=== PATIENT | male | born 1950 | race Hispanic/Latino ===

== ENCOUNTER → 2017-11-15 | Outpatient (CLI) | payer MEDICARE | LOC: RAH 14:56 | PROVIDERS: ATTEND Internal Medicine Cardiovascular Disease | DX: M19.072 Primary osteoarthritis, left ankle and foot (principal); M25.542 Pain in joints of left hand | CPT/HCPCS: 73130; 73610 ==

== ENCOUNTER 2023-09-13 19:28 | Emergency (ER) | payer OTHER, MEDICARE ==
[~2023-09-13] VITALS: Ht 175.3 cm; Wt 68.9 kg
[2023-09-13 20:00] VITALS: BP 152/117; PULSE 119; RESP 18
[2023-09-13 20:35] LABS: BASOPHILS # (AUTO) 0.02 K/uL (0.00-0.20); BASOPHILS % (AUTO) 0.1 % (0.0-5.0); HEMATOCRIT 43.6 % (42-54); IMMATURE GRANULOCYTE ABSOLUTE 0.08 K/uL (0-1); LYMPHOCYTES # (AUTO) 0.8 K/uL (1.0-4.8); LYMPHOCYTES % (AUTO) 5.4 % (21.0-51.0); MEAN CORPUSCULAR HEMOGLOBIN 33.3 pg (27.0-33.0); MEAN CORPUSCULAR VOLUME 92.6 fL (79-99); MONOCYTES # (AUTO) 1.1 K/uL (0.1-1.0); MONOCYTES % (AUTO) 7.8 % (3.0-13.0); NEUTROPHILS % (AUTO) 86.1 % (40.0-77.0); PLATELET COUNT (AUTO) 222 K/uL (130-400); RED BLOOD CELL COUNT(AUTO) 4.71 MIL/uL (4.50-6.20); RED CELL DISTRIBUTION WIDTH 11.8 % (11.0-15.5); WHITE BLOOD COUNT (AUTO) 13.9 K/uL (4.8-10.8)
[2023-09-13 20:42] LABS: CREATININE 2.1 mg/dL (0.5-1.5); POTASSIUM 3.3 mmol/L (3.5-5.1)
[2023-09-13 20:43] LABS: APPEARANCE,URINE CLEAR (CLEAR); BILIRUBIN,URINE NEGATIVE (NEGATIVE); COLOR,URINE YELLOW (YELLOW); GLUCOSE, URINE (UA) 50 mg/dL (NEGATIVE); KETONES,URINE NEGATIVE (NEGATIVE); LEUKOCYTE ESTERASE ,URINE NEGATIVE Leu/uL (NEGATIVE); NITRATE,URINE NEGATIVE (NEGATIVE); OCCULT BLOOD,URINE MODERATE (NEGATIVE); PROTEIN,URINE 600 mg/dL (NEGATIVE); UROBILINOGEN,URINE 0.2 mg/dL (0.2-1.0)
[2023-09-13 20:48] LABS: ADD UA MICROSCOPIC YES
[2023-09-13 20:50] LABS: BACTERIA,URINE RARE /HPF (None Seen); MUCUS,URINE FEW LPF (None Seen)
[2023-09-13] MEDS ORDERED: CHLORPROMAZINE HCL 25 MG/ML 1ML AMP ONE (20:52)
[2023-09-13 20:53] LABS: ALBUMIN 4.1 g/dL (3.5-5.0); BILIRUBIN,TOTAL 0.8 mg/dL (0.2-1.0); TOTAL PROTEIN, SERUM 8.9 g/dL (6.0-8.3)
[2023-09-13] MEDS ORDERED: CHLORPROMAZINE HCL 25 MG/ML 1ML AMP IM SCH (21:00)
[2023-09-13] MEDS ORDERED: DOCU-116 PO (22:39)
== END 2023-09-13 23:03 | disposition home or self-care (01) ==
LOC: EDH 19:28
DX: R06.6 Hiccough (principal); R10.9 Unspecified abdominal pain; I12.9 Hypertensive chronic kidney disease with stage 1 through stage 4 chronic kidney disease, or unspecified chronic kidney disease; N18.9 Chronic kidney disease, unspecified; K59.00 Constipation, unspecified
CPT/HCPCS: 99283; 80053; 83690; 85025; 81001; 36415; 96372; J3230

== ENCOUNTER 2024-12-23 10:59 | Emergency (ER) | payer MEDICARE, OTHER ==
[~2024-12-23] VITALS: Ht 177.8 cm; Wt 81.6 kg
[~2024-12-23 10:59] MED LIST: DOCU-116 PO
[2024-12-23 11:01] VITALS: BP 144/90; PULSE 89; RESP 16; TEMP 97.8; O2SAT 98
[2024-12-23 11:36] LABS: RAPID GROUP A STREP negative (NEGATIVE)
[2024-12-23 11:39] LABS: SARS-CoV-2, RNA, NAAT NEGATIVE SARS CoV-2 (NEGATIVE)
--- NOTE | 2024-12-23 11:45 | ERN ---
General Chief Complaint: Flu Symptoms Stated Complaint: FLU LIKE SYMPTOMS Time Seen by MD: 11:06 Time Seen by Midlevel: 11:06 Source: patient History of Present Illness Initial Comments Patient is a 74-year-old male presenting to the emergency department for evaluation of generalized body weakness. Patient reports weakness to bilateral lower extremities that has been chronic and present for over one year. He does report his girlfriend being sick with flu-like symptoms and is also at the hospital for further evaluation. The patient is specifically denies any chest pain, shortness of breath, fever, chills, or any other symptoms at this time. Allergies: Coded Allergies: No Known Allergies (Unverified Allergy, Unknown, 09/13/23) Home Meds Active Scripts Docusate Sodium (Colace) 100 Mg Capsule, 100 MG PO BID PRN for CONSTIPATION, #30 CAP Prov:PRASHANT ADAIR MD 09/13/23 Past Medical History Past Medical History: Hypertension Past Surgical History: Other Surgical History Other: TIB\FIB SX Social History Social History: Negative ROS Dictation CONSTITUTIONAL: Negative except for HPI HEAD/FACE: Negative except for HPI EENT: Negative except for HPI RESPIRATORY: Negative except for HPI GASTROINTESTINAL/ABDOMINAL: Negative except for HPI GENITOURINARY: Negative except for HPI MUSCULOSKELETAL: Negative except for HPI INTEGUMENTARY: Negative except for HPI NEUROLOGICAL/PSYCH: Negative except for HPI HEMATOLOGIC/LYMPHATIC: Negative except for HPI All Systems Negative, Except as noted above. 13 point review of systems assessed and all negative except for above. Physical Exam Physical Exam Dictation Vital Signs reviewed General Appearance: Alert, oriented x 3, no acute distress, well developed, nourished. Head and Face: non-traumatic. Eyes: PERRL, pink conjunctivas, eyelid no trauma, anterior chamber with arcus senilis. Ears: Pinnas intact and no signs of trauma or erythema ear canals clear and no discharge TM no erythema Nose: No discharge, no bleeding. Oropharynx: Mouth normal, tongue pink, pharynx clear,no erythema, tonsils no exudates, no abscesses noted, mucous membrane moist Neck: Supple, non-tender, no thyromegaly, no masses, no JVD, no bruits Breast:Deferred Chest:No tenderness, no crepitus, no paradoxical movement, no retractions Lungs:Clear, well-ventilated, symmetric, no rales, no wheezing, no rhonchi, no stridor, good breath sounds bilaterally Heart: Regular rate, regular rhythm, no murmur, no gallops Vascular: no peripheral edema, Abdomen: Soft, positive bowel sounds, nondistended, no guarding, nontender, no rebound, no masses no hepatomegaly, no splenomegaly, no Sarmiento's sign, no hernias. Rectal: Deferred Genital: Deferred Neurological: Normal speech, motor function intact, sensory function intact Musculoskeletal: Neck nontender, full range of motion, back nontender, full range of motion, Extremities: nontender, full range of motion Skin: Color pink, dry, no turgor, no rash, no lacerations, no abrasions, no contusions. Lymphatic: Deferred Results Laboratory and Microbiology Lab and Micro Result Laboratory Tests Test 12/23/24 11:07 Influenza Type A Antigen Positive For Type A Influenza Type B Antigen Negative For Type B SARS-CoV-2, RNA, NAAT NEGATIVE SARS CoV-2 Group A Streptococcus Rapid negative (NEGATIVE) Labs Reviewed?: Yes MDM MDM: 74-year-old male presenting to the emergency department with a flu-like symptoms. Patient was girlfriend is sick with similar symptoms. On arrival initial vital signs are stable. Patient was afebrile and nontoxic appearing. Lung examination is unremarkable there was no wheezing, rhonchi, or rales. Patient was not in any acute respiratory distress. He was some mild erythema to the posterior oropharynx with the remainder of his physical examination is unremarkable. Patient was swabbed and is positive for influenza A. Chart review reveals chronic kidney disease with the last GFR recorded in the 30s. We will prescribe Tamiflu 30 mg b.i.d. for five days. The patient will need to follow up with his primary care doctor or return to the ER if he develops any new or worsening symptoms Differential diagnosis: Viral illness, upper respiratory infection, strep There are no social concerns with this patient. Prescription drug management Prescriptions will include: Tamiflu Medical management and examination interpretation discussions were had by me with other qualified healthcare professionals as indicated for the patient's care. ED Course Orders Procedure Category Date Status Time Covid Rna Naat LAB 12/23/24 Complete 11:18 Influenza Type A & B, LAB 12/23/24 Complete Rapid 11:18 Rapid (Group A Strep) LAB 12/23/24 Complete 11:18 Vital Signs Date Time Temp Pulse Resp B/P (MAP) Pulse Ox O2 Delivery O2 Flow Rate FiO2 12/23/24 11:01 97.9 89 16 144/90 99 Room Air 0 12/23/24 11:01 97.9 98 16 144/90 98 Room Air* 0 21 DX & DISP Disposition: Discharge Departure Impression: Primary Impression: Influenza A Condition: Stable Scripts Oseltamivir Phosphate (Tamiflu) 30 Mg Capsule 1 CAP PO BID for 5 Days, #10 CAP 0 Refills Prov: LORRAINE SPRAGUE 12/23/24 Additional Instructions: You have tested positive for influenza A. I have given you a prescription for Tamiflu. If you develop any new or worsening symptoms please report to the ER for further evaluation. Follow up with your PCP in 2-3 days Referrals: TEMI ROJO MD (PCP) I have reviewed the case, and I agree with, Diagnosis and Plan I performed the substantive portion of the visit. I have reviewed and personally made and approve the management plan that is documented in the note by myself or the EARLINE. I acknowledge for responsibility for the patient's management plan. LORRAINE SPRAGUE Dec 23, 2024 11:45
[2024-12-23 11:47] LABS: INFLUENZA TYPE B Negative For Type B (NEGATIVE)
[2024-12-23 11:59] LABS: INFLUENZA TYPE A Positive For Type A (NEGATIVE)
[2024-12-23] MEDS ORDERED: OSEL30CA PO (12:06)
== END 2024-12-23 12:38 | disposition home or self-care (01) ==
LOC: EDH 10:59
DX: J10.1 Influenza due to other identified influenza virus with other respiratory manifestations (principal); I10 Essential (primary) hypertension; Z20.822 Contact with and (suspected) exposure to COVID-19
CPT/HCPCS: 87635; 87804; 87880; 99283

== ENCOUNTER 2025-03-29 12:49 | Emergency (ER) | payer OTHER ==
[~2025-03-29] VITALS: Ht 177.8 cm; Wt 81.6 kg
[~2025-03-29 12:49] MED LIST changes: +OSEL30CA PO
--- NOTE | 2025-03-29 13:00 | ERN ---
ED Note History of Present Illness Stated Complaint: FALL Chief Complaint: Mechanical Fall Time Seen by MD: 12:51 Dictation: Patient is a 74-year-old male coming to the hospital via EMS after a status post same level fall while he was walking out a convenience store. He said he stripped on his curve, fell and hit his face with a laceration to the chin and forehead. No LOC no nausea vomiting. No neck pain no blood thinners no trauma alert criteria. He is having no midline spine pain. States his last tetanus shot is unknown. Allergies: Coded Allergies: No Known Allergies (Unverified Allergy, Unknown, 09/13/23) Home Meds Active Scripts Oseltamivir Phosphate (Tamiflu) 30 Mg Capsule, 1 CAP PO BID for 5 Days, #10 CAP 0 Refills Prov:LORRAINE SPRAGUE 12/23/24 Docusate Sodium (Colace) 100 Mg Capsule, 100 MG PO BID PRN for CONSTIPATION, #30 CAP Prov:PRASHANT ADAIR MD 09/13/23 Past Medical History Past Medical History: Hypertension Surgical History: Other Surgical History Other: TIB\FIB SX Social History: Negative RN Note Reviewed/Agreed w/PFSH: Yes Review of System Dictation CONSTITUTIONAL: Negative except for HPI HEAD/FACE: Negative except for HPI facial lack x2 EENT: Negative except for HPI RESPIRATORY: Negative except for HPI GASTROINTESTINAL/ABDOMINAL: Negative except for HPI GENITOURINARY: Negative except for HPI MUSCULOSKELETAL: Negative except for HPI INTEGUMENTARY: Negative except for HPI NEUROLOGICAL/PSYCH: Negative except for HPI HEMATOLOGIC/LYMPHATIC: Negative except for HPI All Systems Negative, Except as noted above. 13 point review of systems assessed and all negative except for above. Initial Vital Sign VS Vital Signs Date Time Temp Pulse Resp B/P (MAP) Pulse Ox O2 Delivery O2 Flow Rate FiO2 03/29/25 13:00 97.7 98 18 195/120 98 Room Air 0 03/29/25 13:30 21 Physical Exam Dictation Vital Signs reviewed General Appearance: Alert, oriented x 3, no acute distress, well developed, nourished. Head and Face: 1 CM LACERATION TO UPPER LIP RIGHT. 3 CM LACERATION TO CHIN. Eyes: PERRL, pink conjunctivas, eyelid no trauma, anterior chamber with arcus senilis. Ears: Pinnas intact and no signs of trauma or erythema ear canals clear and no discharge TM no erythema Nose: No discharge, no bleeding. Oropharynx: Mouth normal, tongue pink, TEETH ARE INTACT TMJ WITH FULL RANGE OF MOTION NO CREPITATION pharynx clear,no erythema, tonsils no exudates, no abscesses noted, mucous membrane moist Neck: Supple, non-tender, no thyromegaly, no masses, no JVD, no bruits Breast:Deferred Chest:No tenderness, no crepitus, no paradoxical movement, no retractions Lungs:Clear, well-ventilated, symmetric, no rales, no wheezing, no rhonchi, no stridor, good breath sounds bilaterally Heart: Regular rate, regular rhythm, no murmur, no gallops Vascular: no peripheral edema, Abdomen: Soft, positive bowel sounds, nondistended, no guarding, nontender, no rebound, no masses no hepatomegaly, no splenomegaly, no Sarmiento's sign, no hernias. Rectal: Deferred Genital: Deferred Neurological: Normal speech, motor function intact, sensory function intact Musculoskeletal: Neck nontender, full range of motion, back nontender, full range of motion, Extremities: nontender, full range of motion Skin: Color pink, dry, no turgor, no rash, no lacerations, no abrasions, no contusions. Lymphatic: Deferred Results (Laboratory/Radiology) Labs Reviewed?: Yes ED Course ED Course Orders Procedure Category Date Status Time Acetaminophen 500mg PHA 03/29/25 Complete Tab (Tylenol 500mg T 13:00 Tetanus,Diphtheria PHA 03/29/25 Complete Tox [Adult] (Diphther 13:00 Neomy PHA 03/29/25 Complete Sulf/Bacitra/Polymyxin 13:00 Clonidine Hcl 0.2 Mg PHA 03/29/25 Complete Tablet (Catapres 0. 14:00 Current Medications Medications (Trade) Dose Ordered Sig/Flako Route PRN Reason Start Time Stop Time Status Last Admin Dose Admin Acetaminophen (TYLenol 500MG TAB) 1,000 mg ONCE ONCE PO 03/29/25 13:00 03/29/25 13:01 DC 03/29/25 13:21 Clonidine HCl (CATApres 0.2 MG TAB) 0.2 mg ONCE ONCE PO 03/29/25 14:00 03/29/25 14:01 DC 03/29/25 13:51 Neomycin/ Polymyxin/ Bacitracin (Triple Antibiotic Ointment) 1 appl ONCE ONCE TP 03/29/25 13:00 03/29/25 13:01 DC 03/29/25 13:21 Tetanus/ Diphtheria Toxoids Adsorbed (DiphthERIA-teTANUS TOXOID [ADULT]/ DECAVAC) 0.5 ml ONCE ONCE IM 03/29/25 13:00 03/29/25 13:01 DC 03/29/25 13:55 Vital Signs Date Time Temp Pulse Resp B/P (MAP) Pulse Ox O2 Delivery O2 Flow Rate FiO2 03/29/25 13:51 78 212/122 03/29/25 13:30 78 18 212/122 99 Room Air* 0 21 03/29/25 13:00 97.7 98 18 195/120 98 Room Air 0 1455/PATIENT NEUROLOGICALLY INTACT SPEECH IS CLEAR. CURRENT BLOOD PRESSURE 157/96 AFTER TREATMENT WITH CLONIDINE. PATIENT WILL BE DISCHARGED HOME WITH CLONIDINE KEFLEX AND TOLD TO FOLLOW UP WITH THE DOCTOR AND GIVEN A LIST PROVIDED HIM IN THE NEXT 1-2 DAYS. IN ADDITION WE WILL BE GIVEN HIM CLOSED HEAD INJURY INSTRUCTIONS NO FAMILY AT THE BEDSIDE Medical Decision Making MDM MDM: DIFFERENTIAL DIAGNOSIS: FACIAL CONTUSION/LACERATIONS/LIP LACK/TRIP F ALL/HYPERTENSION RATIONALE: TESTS CONSIDERED AND ORDERED SECONDARY TO SHARED DECISION MAKING INCLUDE: NONE PREVIOUS OUTSIDE RECORDS REVIEWED: OLD ER VISITS. RISK OF COMPLICATION AND/OR MORBIDITY OR MORTALITY OF PATIENT MANAGEMENT: NONE MEDICATIONS-PER MEDICATION RECONCILIATION NEED FOR HOSPITALIZATION: PATIENT DOES NOT MEET CRITERIA FOR HOSPITALIZATION. NO THERE ARE NO SOCIAL CONCERNS WITH THIS PATIENT. PRESCRIPTION DRUG MANAGEMENT CLONIDINE/KEFLEX/IBUPROFEN PRESCRIPTIONS WILL INCLUDE SYMPTOMATIC CARE PATIENT'S PRIOR EXTERNAL MEDICAL RECORDS FROM OTHER ER VISITS WERE REVIEWED BY ME INDICATED. PRIOR TESTING AND RESULTS FROM PREVIOUS VISITS WERE REVIEWED. PRIOR TESTS WERE TAKEN INTO ACCOUNT WITH MEDICAL DECISION MAKING AND RESOURCE UTILIZATION, INDEPENDENT HISTORIAN/HISTORIANS WERE USED TO OBTAIN COMPLETE MEDICAL HISTORY. I INDEPENDENTLY INTERPRETED THE TEST THAT WERE PERFORMED, RESULTS WERE REVIEWED BY ME AND CONSIDERED FINDINGS ON RADIOLOGY IF ORDERED. MEDICAL MANAGEMENT AND EXAMINATION INTERPRETATION DISCUSSIONS WERE HAD BY ME WITH OTHER QUALIFIED HEALTHCARE PROFESSIONALS INDICATED FOR THE PATIENT'S CARE. Procedure Procedure Dictation: 1400/PROCEDURE EXPLAINED TO PATIENT HE AGREED TO PROCEED 1 CM LACERATION TO RIGHT UPPER LIP DOES NOT INCLUDE VERMILION BORDER. CLEANED WITH NORMAL SALINE USE 1 ML LIDOCAINE 1% PLAIN FOR LOCAL ANESTHESIA CLOSED WITH ONE 4-0 CHROMIC SIMPLE INTERRUPTED SINGLE-LAYER CLOSURE 2ND LACERATION TO CHIN IS 3 CM CLEANED WITH WOUND CLEANSER USED 2 ML 1% LIDOCAINE PLAIN FOR LOCAL ANESTHESIA NO DEBRIDEMENT CLOSED WITH THREE 4-0 NYLON SIMPLE INTERRUPTED SUTURES SINGLE-LAYER CLOSURE PATIENT TOLERATED WELL DX & DISP Disposition: Discharge Departure Impression: Primary Impression: Chin laceration Additional Impressions: Lip laceration, Facial contusion, Hypertension, Other slipping, tripping and stumbling without falling, initial encounter Condition: Stable Scripts Clonidine HCl (Clonidine HCl) 0.1 Mg Tablet 0.1 MG PO BID, #60 TAB Prov: ALICIA BOWDEN NP 03/29/25 Cephalexin (Cephalexin) 500 Mg Tablet 1 TAB PO QID for 10 Days, #40 TAB 0 Refills Prov: ALICIA BOWDEN MEDICAL PRACTICE ASSISTANT 03/29/25 Additional Instructions: FOLLOW-UP WITH PRIMARY CARE PROVIDER IN 1 TO 2 DAYS. TAKE MEDICATIONS DIRECTED HERE IN THE EMERGENCY ROOM. OKAY TO CONTINUE HOME MEDICATIONS UNLESS OTHERWISE DISCUSSED DURING YOUR VISIT IN THE EMERGENCY ROOM TODAY. RETURN TO YOUR NEAREST EMERGENCY ROOM IF SYMPTOMS WORSEN OR IF THERE IS NO IMPROVEMENT. CALL 911 IF YOU NEED IMMEDIATE ASSISTANCE. TAKE TYLENOL OR MOTRIN [id number] NEEDED AND IF NO CONTRAINDICATIONS ARE PRESENT. INCREASE ORAL HYDRATION. A WOUND CULTURE OR URINE CULTURE WAS ORDERED HERE IN THE EMERGENCY ROOM DEPARTMENT PLEASE FOLLOW-UP WITH PRIMARY CARE PROVIDER AND ADVISE THEM TO GET REPEAT PORTS FROM OUR FACILITY. IF YOU HAD ANY XAVIER WRAP/SPLINTS THAT WERE APPLIED HERE, PLEASE DO NOT REMOVE THEM UNTIL YOU SEE YOUR PRIMARY CARE OR SPECIALTY. TRIPLE ANTIBIOTIC OINTMENT 3 TIMES A DAY FOR FIVE DAYS/[id number] TO CHIN LACERATION WITH DRESSING. SUTURES OUT IN 10 DAYS. TAKE TYLENOL [id number] NEEDED FOR PAIN AND TAKE KEFLEX DIRECTED UNTIL GONE. FOLLOW UP WITH ONE OF THE DOCTORS ON THE LIST PROVIDED YOU FOR MANAGEMENT OF YOUR BLOOD PRESSURE Referrals: TEMI ROJO MD (PCP) Time of Disposition: 14:56 I have reviewed the case, and I agree with, Diagnosis and Plan ALICIA BOWDEN NP Mar 29, 2025 13:00
--- NOTE | 2025-03-29 13:15 | NUR ---
WEARING C-COLLAR VIA EMS
[2025-03-29] MEDS: NEOMY SULF/BACITRA/POLYMYXIN B 1 EACH PACKET TP ONE (13:21)
[2025-03-29] MEDS ORDERED: HYDR1LIQ PO (13:37)
--- NOTE | 2025-03-29 13:40 | NUR ---
WOUND CARFE WAS DONE TO PTS FACE AND HANDS. BANDAGE WAS APPLIED TO CHIN AND LIP TO HOLD SOME PRESSURE TO OOZING WOUNDS. ALICIA WAS ADVISED OF LACERATIONS AND NEED FOR REPAIR TO CHIN LACERATION.
--- NOTE | 2025-03-29 14:04 | NUR ---
C-COLLAR WAS REMOVED BY ALICIA BOWDEN NP AND SUTURE REPAIR DONE TO CHIN AND LOWER LIP
[2025-03-29] MEDS ORDERED: CEPH500T PO (14:57)
[2025-03-29] MEDS ORDERED: CLON0.1T PO (14:57)
--- NOTE | 2025-03-29 15:00 | NUR ---
PTS CONTACTS WERE CALLED MULTIPLE TIMES, NO ANSWER TO ANY OF THE NUMBERS PROVIDED. FATUMA [phone], [phone]. [facility] WAS CALLED AT [phone]. PT WAS ASKED IF HE WOULD BE ABLE TO PAY FOR A TAXI IF ONE WAS CALLED TO TAKE HIM HOME. PT WAS ADVISED THAT HE IS BEING DISCHARGED HOME AND IF HE WOULD BE ABLE TO GET ENTRY OR PAY FOR A TAXI IF WE WERE TO CALL FOR ONE HIS FAMILY DID NOT ANSWER ANY CALLS. PT STATES HE HAS MONEY TO PAY FOR TAXI. PT ALSO GAVE HIS PHYSICAL ADDRESS WHICH IS THE SAME THE ONE ON HIS FACE SHEET.
--- NOTE | 2025-03-29 15:40 | NUR ---
ROSAMARIA WAS CONTACTED TO SEE IF PT COULD BE PROVIDED A LYFT HOME ALL [facility] NUMBERS CALLED [phone], , . ROSAMARIA APPROXED. PT WAS ADVISED THAT A RIDE WAS FOUND FOR HIM.
--- NOTE | 2025-03-29 16:00 | NUR ---
PT STATES THAT HE DOES WANT TO GO HOME BECAUSE HE WILL BE ALONE HIS COUSION [employer] IS AT WORK AND WILL NOT GET OUT UNTIL 6. PT WAS ADVISED THAT WE WILLBE UNABLE TO PROVIDE RIDE HOME IF HE DOES NOT GO AT THIS TIME. PT STATES HE DOES NOT KNOW HOW HE WILL DO IT AT HOME WITHOUT [facility]. PT WAS ADVISED THAT [facility] WAS CALLED MULTIPLE TIMES AND DID NOT CALL BACK. PT STATES HE DOES NOT WANT TO STAY HERE BUT DOES NOT WANT TO BE HOME ALONE. PT WAS ADVISED THAT THOSE WERE HIS ONLY OPTIONS AT THIS TIME. PT WAS THAT HE IS FREE TO STAY IN THE ED LOBBY WHILE HE WAITS FOR [facility] TO COME FOR HIM. BUT STATES HE DOES NOT WANT TO STAY IN THE [facility].
[2025-03-29 16:06] VITALS: BP 160/78; PULSE 88; RESP 18; TEMP 97.5; O2SAT 98
--- NOTE | 2025-03-29 16:08 | NUR ---
ON ARRIVAL OF TRANSPORTATION, PT TOLD TRANSPORTION HE DID NOT WANT TO BE ALONE AND HE LIVED ALONE. [employer]ER STATES "NOT A PROBLEM" AND CANCELED HIS RIDE. PT WAS ADVISED THAT RIDE WAS CANCELED THEY GENERALLY DONT TAKE PEOPLE AGAINST THEIR WILL AND HE IS FREE TO WAIT IN THE ED LOBBY UNTIL [facility] IS FREE TO MAKE ARRANGEMENTS FOR HIM.
== END 2025-03-29 16:07 | disposition home or self-care (01) ==
LOC: EDH 12:49
DX: S01.81XA Laceration without foreign body of other part of head, initial encounter (principal); S01.511A Laceration without foreign body of lip, initial encounter; I10 Essential (primary) hypertension; W01.0XXA Fall on same level from slipping, tripping and stumbling without subsequent striking against object, initial encounter; Y93.89 Activity, other specified; Y92.89 Other specified places as the place of occurrence of the external cause; Y99.8 Other external cause status
CPT/HCPCS: 12013; 90471; 90714; 99284